=== PATIENT | male | born 1955 | race Caucasian/White ===

== ENCOUNTER → 2020-05-13 | Outpatient (CLI) | payer MEDICAID ==
--- NOTE | 2020-05-13 11:13 | Diagnostic Imaging Report ---
HISTORY: Right shoulder pain. Rotator cuff tendinitis. TECHNIQUE: 2 views of the right shoulder COMPARISON: None FINDINGS: No acute fracture or dislocation is seen in the right shoulder. Alignment appears normal. There are moderate degenerative changes in the acromioclavicular joint. No surrounding calcifications are seen. IMPRESSION: 1. Moderate degenerative changes in the right acromioclavicular joint with no acute osseous abnormalities seen in the right shoulder. Dictated by: Dictated on workstation # [id number]
== END ==
LOC: ORTHO 10:15
PROVIDERS: ATTEND Orthopaedic Surgery
DX: M19.011 Primary osteoarthritis, right shoulder (principal)
CPT/HCPCS: 73030; G0463

== ENCOUNTER → 2021-05-19 | Outpatient (CLI) | payer MEDICAID ==
--- NOTE | 2021-05-19 10:27 | Diagnostic Imaging Report ---
INDICATION: Decreased range of motion. COMPARISON: None. FINDINGS: 3 views of the left were obtained and show no fractures, dislocations, or other acute bony abnormalities. There are are moderate osteophytic changes at the 1st carpometacarpal joint space. Otherwise, joint spaces are maintained. The soft tissues appear unremarkable. No radiopaque foreign bodies are identified. IMPRESSION: 1. Moderate osteoarthritic changes at the 1st carpometacarpal joint space. 2. Otherwise, unremarkable radiographic exam of the left hand. Dictated by: Dictated on workstation # [id number]
== END ==
LOC: ORTHO 09:03
PROVIDERS: ATTEND Orthopaedic Surgery
DX: M18.12 Unilateral primary osteoarthritis of first carpometacarpal joint, left hand (principal)
CPT/HCPCS: 20550; 20605; 73130; G0463

== ENCOUNTER → 2022-05-11 | Outpatient (CLI) | payer MEDICAID | LOC: ORTHO 09:30 | PROVIDERS: ATTEND Orthopaedic Surgery | DX: M18.11 Unilateral primary osteoarthritis of first carpometacarpal joint, right hand (principal) | CPT/HCPCS: 20600; G0463 ==

== ENCOUNTER → 2023-04-03 | Outpatient (CLI) | payer MEDICARE, OTHER ==
--- NOTE | 2023-04-03 16:48 | Diagnostic Imaging Report ---
PROCEDURE: MRI lumbar spine. TECHNIQUE: Multiplanar, multisequence MRI of the lumbar spine was performed without contrast. INDICATION: Multiple injuries to the back, several falls complaining of worsening back pain. I have no relevant comparison. FINDINGS: The lumbar vertebral statures are normal. No fracture or acute bony pathology. There is severe degenerative changes throughout the lumbar spine with extensive edematous Modic type I degenerative changes across the L4-L5 opposing endplates and a lesser extent at L2-L3. There are few scattered benign fat-containing hemangiomas. Lower thoracic cord and conus appeared unremarkable. There is no paravertebral mass, hemorrhage or fluid collection. There is likely severe chronic nonfunctioning right-sided hydronephrosis at least to the level of the ureteropelvic junction. Contralateral left kidney is unobstructed and appeared nonacute with few parapelvic cysts noted. T12-L1: Degenerative changes to the discs, endplates and facets result in no significant stenosis. L1-L2: Degenerative changes at this level result in mild right and moderate left foraminal stenosis and mild left lateral recess stenosis. Canal patent. L2-L3: Disc bulge, endplate osteophytes and mild facet hypertrophy greater left results in mild canal stenosis. There is mild to moderate left and mild right neural foraminal stenoses. L3-L4: There is mild degenerative facet disease, endplate osteophytes and disc material present resulting in moderate right and mild to moderate severity of left foraminal stenosis with mild canal stenosis. L4-L5: Degenerative changes most severe at this level. There is bulky thickening of the ligamenta flava and facet arthrosis, disc bulge and endplate osteophytes. The findings result in a severe degree of central canal stenosis. There is moderate to severe right and moderate left neural foraminal stenoses with moderate severity of bilateral lateral recess stenosis L5-S1: There is hypertrophic facet disease with disc desiccation, bulge and endplate osteophytes resulting in moderate to severe right and severe left foraminal stenosis or severe right and mild left lateral recess stenosis. There is prominence of the dorsal epidural fat. The findings result in severe canal stenosis. IMPRESSION: 1. Degenerative changes with multilevel stenoses most notably involving L4-L5 and L5-S1 as above. No acute bony pathology. 2. 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 Dictated by: Dictated on workstation # [id number]
== END ==
LOC: RAD 13:30
PROVIDERS: ATTEND Student in an Organized Health Care Education/Training Program
DX: M47.816 Spondylosis without myelopathy or radiculopathy, lumbar region (principal); M47.817 Spondylosis without myelopathy or radiculopathy, lumbosacral region; M48.061 Spinal stenosis, lumbar region without neurogenic claudication; M48.07 Spinal stenosis, lumbosacral region; D18.00 Hemangioma unspecified site; N28.89 Other specified disorders of kidney and ureter; M47.815 Spondylosis without myelopathy or radiculopathy, thoracolumbar region; M51.26 Other intervertebral disc displacement, lumbar region; M25.78 Osteophyte, vertebrae; M89.38 Hypertrophy of bone, other site
CPT/HCPCS: 72148